=== PATIENT | male | born 1955 | race Caucasian/White ===

== ENCOUNTER 2016-09-15 02:32 | Emergency (ER) | payer BC ==
[~2016-09-15] VITALS: Ht 180.3 cm; Wt 110.1 kg
[2016-09-15 03:11] LABS: HEMATOCRIT 44.4 % (38.0-50.0); MCH 28.9 PG (29.0-34.0); MCHC 33.6 G/DL (30.0-36.0); MEAN PLAT.VOLUME 9.8 uM^3 (9.0-12.4); PLATELET COUNT 234 K/uL (156-360); RBC DIS.WIDTH-CV 13.6 % (11.8-14.6); RED BLOOD COUNT 5.16 M/uL (4.00-5.50); WHITE BLOOD COUNT 10.2 K/uL (4.1-10.2)
[2016-09-15 03:20] LABS: CHLORIDE 110 mEq/L (99-109); POTASSIUM 4.2 mEq/L (3.7-5.4); SODIUM 140 mEq/L (136-147)
[2016-09-15 03:23] LABS: GLUCOSE 110 mg/dL (70-99)
[2016-09-15 03:24] LABS: ANION GAP 10 MEQ/L (2-14)
[2016-09-15 03:25] LABS: TOTAL BILIRUBIN 0.3 mg/dL (0.0-1.0)
[2016-09-15 03:26] LABS: ALKALINE PHOSPHATASE 49 IU/L (3-129); GFR ESTIMATE (CALCULATED) > 59 mL/min/
[2016-09-15 03:27] LABS: UREA NITROGEN (BUN) 18 mg/dL (9-23)
[2016-09-15 04:06] LABS: DIRECT BILIRUBIN 0.1 mg/dL (0.0-0.3)
[2016-09-15 04:12] LABS: TROP-I INTERPRETATION NEGATIVE; TROPONIN-I < 0.01 ng/mL (0.0-0.30)
[2016-09-15 04:56] LABS: ADD MIUA? NO; BILIRUBIN NEGATIVE; BLOOD NEGATIVE; COLOR YELLOW ((YELLOW)); GLUCOSE (STRIP) NEGATIVE; KETONES 5; LEUKOCYTES NEGATIVE; NITRITE NEGATIVE; PROTEIN (STRIP) 30; UCUL ADDED? NO; UROBILINOGEN 0.2 MG/DL (0.2-1.0)
[2016-09-15] MEDS ORDERED: BENTYL20 MG PO (04:58)
[2016-09-15] MEDS ORDERED: PEPCID20 MG PO (04:58)
[2016-09-15 05:41] VITALS: BP 142/86
== END 2016-09-15 05:42 | disposition home or self-care (01) ==
LOC: EME 02:32
DX: K59.00 Constipation, unspecified (principal); R93.8 Abnormal findings on diagnostic imaging of other specified body structures
CPT/HCPCS: 74177; 80053; 81003; 82248; 83605; 84484; 85027; 93005; 99281; 99285; J2270; J2405; J7030; S0028